=== PATIENT | male | born 1940 | race Caucasian/White ===

== ENCOUNTER 2016-03-12 08:39 | Emergency (ER) | payer MEDICARE, OTHER ==
[2016-03-12 09:21] VITALS: BP 136/87
--- NOTE | 2016-03-12 09:31 | UC ---
Throat Pain/Nasal Jeffy HPI - HPI Summary HPI Summary: Here with his daughter 03/04/16 started to feel ill with cough,nasal congestion cough with clear to yellow sputum coughing fits worse at night hearing wheezing occasionally felt chills and feverish, aching joints, poor appetite but drinking fluids difficult to sleep due to coughing denies sore throat and headache denies N/V/D taking excedrin with some relief dx with pneumonia 03/10/16 with influenza and pneumonia - History of Current Complaint Chief Complaint: UCRespiratory Stated Complaint: COUGH CONGESTION Time Seen by Provider: 03/12/16 09:25 Hx Obtained From: Patient Cough: Productive Associated Signs & Symptoms: Positive: Wheezing, Nasal Discharge - Allergies/Home Medications Allergies/Adverse Reactions: Allergies Allergy/AdvReac Type Severity Reaction Status Date / Time No Known Allergies Allergy Verified 03/12/16 09:21 Home Medications: Home Medications Pantoprazole TAB (NF) [Protonix TAB (NF)] 20 mg PO DAILY 03/12/16 [History Confirmed 03/12/16] Simvastatin (NF) [Zocor (NF)] 40 mg PO 1700 03/12/16 [History Confirmed 03/12/16 ] PMH/Surg Hx/FS Hx/Imm Hx Previously Healthy: Yes Cardiovascular History Of: Reports: Hypertension - Surgical History Surgical History: Yes Surgery Procedure, Year, and Place: "[facility] had lots and lots of surgery, none recent - Family History Known Family History: Negative: Cardiac Disease, Hypertension, Diabetes - Social History Occupation: Retired Lives: With Family Alcohol Use: Occasionally Substance Use Type: None Smoking Status (MU): Never Smoked Tobacco - Immunization History Most Recent Pneumonia Vaccination: 2016 Review of Systems Constitutional: Chills, Fatigue Skin: Negative Eyes: Negative ENT: Nasal Discharge Respiratory: Cough Cardiovascular: Negative Gastrointestinal: Negative Genitourinary: Negative Motor: Negative Neurovascular: Negative Musculoskeletal: Negative Neurological: Negative Psychological: Negative All Other Systems Reviewed And Are Negative: Yes Physical Exam Triage Information Reviewed: Yes Appearance: No Pain Distress, Well-Nourished Vital Signs: Initial Vital Signs Temp 97.7 F 03/12/16 09:14 Pulse 102 03/12/16 09:14 Resp 20 03/12/16 09:14 BP 136/87 03/12/16 09:14 Pulse Ox 100 03/12/16 09:14 Vital Signs Reviewed: Yes Eyes: Positive: Conjunctiva Clear ENT: Positive: Pharyngeal erythema, Nasal congestion, TMs normal Neck: Positive: No Lymphadenopathy Respiratory: Positive: Rhonchi, Wheezing - RML, Cardiovascular: Positive: RRR, No Murmur, Pulses Normal Bowel Sounds: Positive: Present Musculoskeletal: Positive: No Edema Neurological: Positive: Alert Psychological Exam: Normal Skin Exam: Normal Re-Evaluation - Re-Evaluation First Eval Re-Evaluation Time: 10:05 Change: Improved Comment: less wheezing throughout Throat Pain/Nasal Course/Dx - Course Course Of Treatment: exam completed. probabale infuenza with secondary infection. will treat for pneumonia [facility] refuses chest x-ray- agrees to return if symptoms worsen - Differential Dx/Diagnosis Differential Diagnosis/HQI/PQRI: Pharyngitis, Sinusitis, URI, Other - influenza , pneumonia Provider Diagnoses: pneumonia secondary to viral infection Discharge - Discharge Plan Condition: Stable Disposition: HOME Prescriptions: Albuterol HFA INHALER* [Ventolin HFA Inhaler*] 2 puff INH Q4H PRN #1 mdi PRN Reason: Wheezing Clarithromycin TAB* [Biaxin TAB*] 500 mg PO BID #10 tab Spacer/Aerosol-Holding Chamber [Aerochamber Mv] 1 mis XX Q4HR #1 mis Patient Education Materials: Pneumonia (ED) Referrals: No Primary Care Phys,NOPCP [Primary Care Provider] - [facility] [Outside] Additional Instructions: STOP taking your simvastatin for the next 7 days Please take antibiotic as directed Use your albuterol inhaler every 4-6 hours when needed for wheezing, shortness of breath or uncontrolled coughing. Increase fluids and rest Take acetaminophen for fever or pain [facility]3 days Please review your discharge instructions. If your symptoms do not improve please call your primary care provider or return to urgent care.
[2016-03-12] MEDS ORDERED: Albuterol/Ipratropium NEB.SOL* Albuterol 2.5 MG/Ipratropium 0.5 MG 3 ML INH ONE (09:42)
== END 2016-03-12 10:10 | disposition home or self-care (01) ==
LOC: UCEAST 08:39
DX: J12.9 Viral pneumonia, unspecified (principal); I10 Essential (primary) hypertension
CPT/HCPCS: 94640; 99212; A9270-GY; G0463

== ENCOUNTER 2016-07-03 05:46 | Emergency (ER) | payer MEDICARE, OTHER ==
[2016-07-03] MEDS ORDERED: NS 0.9% 1000 ML* 1,000 ML IV ONE (06:17)
[2016-07-03] MEDS ORDERED: Ondansetron INJ* 2 MG/ML VIAL IV ONE (06:17)
[2016-07-03 06:37] LABS: Hematocrit 41 % (42-52); Hemoglobin 14.3 g/dl (14.0-18.0); Mean Corpuscular HGB Conc 35 g/dl (31-36); Mean Corpuscular Hemoglobin 32 pg (27-31); Mean Corpuscular Volume 91 fL (80-94); Mean Platelet Volume 9 um3 (7.4-10.4); Red Blood Count 4.53 10^6/ul (4.0-5.4); Red Cell Distribution Width 13 % (10.5-15); White Blood Count 9.8 10^3/ul (3.5-10.8)
--- NOTE | 2016-07-03 06:54 | ED ---
Nneka Hodgson Matthew, scribed for Mina Thomas MD on 07/03/16 at 0640 . Abdominal Pain/Male - HPI Summary HPI Summary: A 75 y/o male presents to the ED with diffuse abdominal pain since 21:00 yesterday. The pain is rated 7/10 in severity. Associated symptoms include fever , chills, weakness, and nausea. - History of Current Complaint Chief Complaint: EDNauseaVomitDiarrh Stated Complaint: STOMACHE ACHE/FEVER/V &N Hx Obtained From: Patient Onset/Duration: Lasting Hours, Still Present Timing: Constant Severity Initially: Moderate Severity Currently: Moderate Pain Intensity: 7 Pain Scale Used: 0-10 Numeric Location: Diffuse Associated Signs And Symptoms: Positive: Fever, Nausea, Vomiting, Other - Weakness general; chills - Allergies/Home Medications Allergies/Adverse Reactions: Allergies Allergy/AdvReac Type Severity Reaction Status Date / Time No Known Allergies Allergy Verified 03/12/16 09:21 PMH/Surg Hx/FS Hx/Imm Hx Cardiovascular History: Reports: Hx Angina, Hx Hypercholesterolemia, Hx Hypertension Denies: Hx Coronary Artery Disease, Hx Myocardial Infarction, Hx Valvular Heart Disease Respiratory History: Denies: Hx Asthma, Hx Chronic Obstructive Pulmonary Disease (COPD) - Surgical History Surgery Procedure, Year, and Place: "[facility] had lots and lots of surgery, none recent Infectious Disease History: No Infectious Disease History: Reports: Traveled Outside the [place] in Last 30 Days - [place] - Family History Known Family History: Negative: Cardiac Disease, Hypertension, Diabetes - Social History Alcohol Use: Occasionally Substance Use Type: Reports: None Smoking Status (MU): Never Smoked Tobacco Review of Systems Positive: Fever, Chills Eyes: Negative ENT: Negative Cardiovascular: Negative Respiratory: Negative Positive: Abdominal Pain, Vomiting, Nausea Genitourinary: Negative Musculoskeletal: Negative Skin: Negative Neurological: Negative Psychological: Normal All Other Systems Reviewed And Are Negative: Yes Physical Exam Triage Information Reviewed: Yes Vital Signs On Initial Exam: Initial Vitals Temp Pulse Resp BP Pulse Ox 94.5 F 88 18 122/78 100 07/03/16 05:49 07/03/16 05:49 07/03/16 05:49 07/03/16 05:49 07/03/16 05:49 Vital Signs Reviewed: Yes Appearance: Positive: No Pain Distress, Ill-Appearing Skin: Positive: Warm, Pale Head/Face: Positive: Normal Head/Face Inspection Eyes: Positive: DANIEL ENT: Positive: Hearing grossly normal Neck: Positive: Supple Respiratory/Lung Sounds: Positive: Clear to Auscultation, Breath Sounds Present Cardiovascular: Positive: RRR Abdomen Description: Positive: Nontender, Soft Bowel Sounds: Positive: Present Musculoskeletal: Positive: Strength/ROM Intact Neurological: Positive: Sensory/Motor Intact, Alert, Oriented to Person Place, Time - [place] Coma Scale Coma Scale Total: 15 Diagnostics - Vital Signs Vital Signs Temp Pulse Resp BP Pulse Ox 07/03/16 06:28 96.8 F 07/03/16 06:06 73 100 07/03/16 06:04 128/73 07/03/16 05:54 94.5 F 88 18 122/78 100 07/03/16 05:49 94.5 F 88 18 122/78 100 - Laboratory Lab Results: Lab Results 07/03/16 Range/Units 06:25 WBC 9.8 (3.5-10.8) 10^3/ul RBC 4.53 (4.0-5.4) 10^6/ul Hgb 14.3 (14.0-18.0) g/dl Hct 41 L (42-52) % MCV 91 (80-94) fL MCH 32 H (27-31) pg MCHC 35 (31-36) g/dl RDW 13 (10.5-15) % Plt Count 273 (150-450) 10^3/ul MPV 9 (7.4-10.4) um3 Neut % (Auto) 72.5 (38-83) % Lymph % (Auto) 17.7 L (25-47) % [place] % (Auto) 7.2 (1-9) % Eos % (Auto) 1.7 (0-6) % Baso % (Auto) 0.9 (0-2) % Absolute Neuts (auto) 7.1 (1.5-7.7) 10^3/ul Absolute Lymphs (auto) 1.7 (1.0-4.8) 10^3/ul Absolute Monos (auto) 0.7 (0-0.8) 10^3/ul Absolute Eos (auto) 0.2 (0-0.6) 10^3/ul Absolute Basos (auto) 0.1 (0-0.2) 10^3/ul Absolute Nucleated RBC 0 10^3/ul Nucleated RBC % 0 Result Diagrams: 07/03/16 06:25 07/03/16 06:25 Lab Statement: Any lab studies that have been ordered have been reviewed, and results considered in the medical decision making process. - EKG 06:35 Cardiac Rate: NL - 62 bpm EKG Rhythm: Sinus Rhythm EKG Interpretation: No STEMI Abdominal Pain Fem Course/Dx - Diagnoses Provider Diagnoses: Abdominal pain Discharge - Discharge Plan Condition: Stable Disposition: HOME Discharge Disposition Comment: The patient is signed out to Dr. Medrano pending lab results. Patient Education Materials: Abdominal Pain (ED) Referrals: Elaine Haddad [Primary Care Provider] - The documentation as recorded by the Nneka james Matthew accurately reflects the service I personally performed and the decisions made by , Mina Thomas MD.
[2016-07-03 06:57] LABS: Albumin 4.1 g/dL (3.2-5.2); BUN/Creatinine Ratio 21.6 (8-20); Calcium 9.7 mg/dL (8.6-10.3); EGFR African American 97.3 (>60); EGFR Non-African American 75.7 (>60); Globulin 3.2 g/dL (2-4); Magnesium 1.8 mg/dL (1.9-2.7); Total Bilirubin 0.6 mg/dL (0.2-1.0); Total Protein 7.3 g/dL (6.4-8.9)
--- NOTE | 2016-07-03 08:48 | CONSULT ---
Consult Consult: Mr. Gary came in on the previous shift C/O having epigastric pain all night long which got worse about [id number] and caused him to be 'feverish', nauseated and vomit two times. He was treated symptomatically in the ED with fluids and anti-emetics and felt significantly improved. He has no C/O when I see him and his W/U is normal aside from a slightly increased lactate that was treated with fluids. I will D/C him in stable condition with a diagnosis of abdominal pain.
[2016-07-03 09:23] VITALS: BP 111/56
== END 2016-07-03 09:21 | disposition home or self-care (01) ==
LOC: ED 05:46
DX: R10.9 Unspecified abdominal pain (principal); R11.2 Nausea with vomiting, unspecified; R50.9 Fever, unspecified
CPT/HCPCS: 36415; 80053; 83605; 83690; 83735; 84484; 85025; 93005; 96374; 99283; J2405

== ENCOUNTER → 2018-07-03 09:45 | Day surgery (SDC) | payer MEDICARE, OTHER ==
[~2018-07-03 09:45] MED LIST: Buffered Lidocaine 1% SYRIN* 1 ML/SYRINGE INTRADERM ONE; Bupivacaine 0.25% SDV PF* 10 ML VIAL INJ ONE; Lactated Ringers 1000 ML Bag* 1,000 ML IV SCH; Lidocaine 1% INJ* 10 MG/ML 30 ML SDV ONE; Midazolam* 1 MG/ML 2 ML VIAL (2 MG) ONE; Naloxone* 0.4 MG/ML 1 ML VIAL IV PRN; ceFAZolin 2 GM PREMIX in ORs 2 GM/50 ML BAG IVPB ONE; fentaNYL* 50 MCG/ML 2 ML VIAL (100 MCG VIAL) ONE
[2018-07-03 13:43] VITALS: BP 138/80
--- NOTE | 2018-07-03 23:15 | OP ---
OPERATIVE NOTE: DATE OF OPERATION: 07/03/18 DATE OF : 42 SURGEON: Samson Oneal MD. RADIOSONDE SPECIALIST: ZAEN Cole. A physician lab assistant was required for the length of the procedure for assistance with positioning, r etraction, and closure. ANESTHESIOLOGIST: Dr. Kelly Sanders. ANESTHESIA: Monitored anesthesia care and local anesthesia. Local anesthesia consisted of 10 cc of 1:1 ratio of lidocaine 1%, Marcaine 0.5% without epinephrine. PRE-OP DIAGNOSIS: Left carpal tunnel syndrome. POST-OP DIAGNOSIS: Left carpal tunnel syndrome. OPERATIVE PROCEDURE: Left open carpal tunnel release. ANTIBIOTICS: 2 g Ancef IV. IV FLUIDS: 600 cc crystalloid. TOURNIQUET TIME: 16 minutes at 250 mmHg, left upper arm. BFVE-HP-CQVH TIME: 13 minutes. SPECIMEN: None. IMPLANTS: None. COMPLICATIONS: None. ESTIMATED BLOOD LOSS: Minimal. INDICATIONS: The patient is a 77-year-old man, retired, with symptoms of carpal tunnel syndrome, wit h it confirmed by electrodiagnostic studies as being severe and chronic. The patient opted for surge ry. Discussed risks and potential complications. DESCRIPTION OF PROCEDURE: The patient signed out consent in preoperative holding. We consented him f or both endoscopic and open, but the endoscopic instrumention was not available. I signed the operat gregor extremity. The patient was brought back to the operating room and kept on stretcher. The patien t was lightly sedated. Hand table was applied to the stretcher. Mini time-out was performed. 10 cc of local anesthesia was applied to the forearm and wrist. Prepped and draped. Surgical time-out performed. Esmarch was applied and the tourniquet was elevate d. Standard skin incision. Dissection down to longitudinal fascia. Incision of this. Dissection to tra nsverse carpal ligament. It was released centrally and then distally and then proximally using a 15- blade as well as scissors. Cleared off the superficial and deep aspect of it for nice visualization. Transverse carpal ligament ends retracted nicely from each other. Irrigation. Closure of the skin with horizontal mattress stitches using nylon 4-0 suture. Xeroform, 4x4s, sterile Webril, Coban. Tourniquet dropped. DISPOSITION: The patient was given wound care instructions. Pain medication. The patient will foll ow up 10 to 14 days postoperatively. [id number]/[facility] #: [id number]
== END | disposition home or self-care (01) ==
LOC: OR 09:45
PROVIDERS: ATTEND Orthopaedic Surgery
DX: G56.03 Carpal tunnel syndrome, bilateral upper limbs (principal); K21.9 Gastro-esophageal reflux disease without esophagitis; E78.00 Pure hypercholesterolemia, unspecified; Z79.899 Other long term (current) drug therapy; F17.210 Nicotine dependence, cigarettes, uncomplicated
CPT/HCPCS: J0690; J2250; J3010; J3490

== ENCOUNTER → 2018-07-31 08:37 | Day surgery (SDC) | payer MEDICARE, OTHER ==
[~2018-07-31 08:37] MED LIST changes: +Acetaminophen TAB* 325 MG ONE; +Acetaminophen TAB* 325 MG PO ONE; +Acetaminophen TAB* 325 MG PO PRN; -Bupivacaine 0.25% SDV PF* 10 ML VIAL INJ ONE; +Bupivacaine 0.5%* 50 ML VIAL ONE; +Dexamethasone IV* 4 MG/ML 1 ML (4 MG) ONE; +DiMENhydriNATE IV* 50 MG/ML VIAL IV PUSH PRN; +Famotidine IV* 10 MG/ML 2 ML (20 mg) ONE; +HYDROcodone/ACETAMIN 5-325 MG* 1 TAB PO PRN; +Ketorolac INJ* 30 MG/ML 1 ML VIAL ONE; +Lidocaine 2% PF * 5 ML VIAL ONE; +Ondansetron INJ* 2 MG/ML VIAL IV PRN; +PROCHLORPERAZINE INJ 5 MG/ML 2 ML VIAL IV PRN; +Propofol* 10 MG/ML 20 ML BTL ONE; +diPHENhydraMINE IV* 50 MG/ML 1 ml VIAL (BENADRYL) IV PRN; +fentaNYL* 50 MCG/ML 2 ML VIAL (100 MCG VIAL) IV PRN
[2018-07-31 15:05] LABS: Rapid HIV 1 Nonreactive (Nonreactive)
[2018-07-31 15:06] VITALS: BP 141/87
--- NOTE | 2018-07-31 23:23 | OP ---
OPERATIVE REPORT: DATE OF OPERATION: 07/31/18 DATE OF : 42 SURGEON: Dr. Samson Oneal. PROGRAMMING INSTRUCTOR: ZANE Rivers. A physician human resources assistant manager was required for the length of the procedure for help with patient positioning, retraction, and closure. ANESTHESIOLOGIST: Dr. Jabier Kemp. ANESTHESIA: LMA general anesthesia, local anesthesia with 8 cc of Marcaine with epinephrine. PRE-OP DIAGNOSIS: Right carpal tunnel syndrome. POST-OP DIAGNOSIS: Right carpal tunnel syndrome. OPERATIVE PROCEDURE: Right endoscopic carpal tunnel release. ANTIBIOTICS: 2 g Ancef IV. IV FLUIDS: See anesthesia note. TOURNIQUET TIME: 32 minutes at 250 mmHg, right upper arm. SKIN TO SKIN TIME: 27 minutes. COMPLICATIONS: None. IMPLANTS: None. SPECIMEN: None. ESTIMATED BLOOD LOSS: Minimal. INDICATIONS FOR PROCEDURE: The patient is a 77-year-old man, retired, with severe symptoms of numbne ss, tingling, and pain in bilateral hands consistent with carpal tunnel syndrome, with electrodiagnos tic studies showing chronic severe bilateral carpal tunnel syndrome. Two weeks preoperatively, I did a contralateral left open carpal tunnel release. I chose open because the endoscopic equipment was not available that day. The patient and I discussed endoscopic versus open and I booked the patient today for endoscopic versus open carpal tunnel release, right. DESCRIPTION OF PROCEDURE: In preoperative holding, the patient signed written consent. Operative ex tremity was marked in preoperative holding. The patient was taken back to the operating room and kep t on the stretcher. The patient was sedated and LMA was placed. Hand table was applied, right. Raji rniquet was placed around the right upper arm. Right upper extremity was prepped and draped. Surgica l time-out was performed. Esmarch was applied and the tourniquet was elevated. I made a 1.5 cm transverse incision just proximal to the wrist flexion crease. I identified the palm jatin. I retracted that radially. I dissected down to the distal forearm volar fascia. I picked anthony t up and incised it, using spreading dissection using scissors. I identified the contents of what wo uld be more distally the carpal tunnel. Before cutting skin and throughout the procedure, I paid att ention to all relevant landmarks. I dilated the carpal tunnel. I palpated the hook of the hamate an d the transverse carpal ligament undersurface. I next placed the endoscope. I then cleaned off the undersurface of the transverse carpal ligament w ith a Q-Tip. I identified the distal end of the transverse carpal ligament. On its ulnar aspect wit h no contents of carpal tunnel in sight, I released from distal to proximal the transverse carpal lig ament. The ends retracted in radial and ulnar direction. Irrigation. Closure of the skin incision with horizontal mattress stitches using nylon 4-0 suture. Xeroform, 4x4s, sterile Webril followed by Coban. Big bulky dressing. I should state that prior to prepping and draping the right upper extremity, I placed some local anes thetic after performing a mini time-out procedure. I placed 8 cc of Marcaine 0.5% with epinephrine i nto the distal forearm. DISPOSITION: The patient was taken to the recovery room after being extubated. The patient will foll ow up with me in 10 to 14 days postoperatively. Percocet as needed for pain control. Wound care ins tructions provided. [id number]/[facility] #: [id number]
[2018-08-01 15:21] LABS: Hepatitis Be Antigen Negative (Negative)
[2018-08-01 15:45] LABS: Hepatitis Be Antibody Negative (Negative)
[2018-08-04 11:02] LABS: Hepatitis C Antibody Nonreactive (Nonreactive)
== END | disposition home or self-care (01) ==
LOC: OR 08:37
PROVIDERS: ATTEND Orthopaedic Surgery
DX: G56.01 Carpal tunnel syndrome, right upper limb (principal); Z87.891 Personal history of nicotine dependence; R06.00 Dyspnea, unspecified; K21.9 Gastro-esophageal reflux disease without esophagitis; E78.00 Pure hypercholesterolemia, unspecified
CPT/HCPCS: 36415; 86703; 86707; 86803; 87350; A9270-GY; J0690; J1100; J1885; J2250; J2704; J3010; J3490